=== PATIENT | female | born 1940 | race Caucasian/White ===

== ENCOUNTER → 2023-07-10 10:05 | Outpatient (REF) | payer MEDICARE, OTHER, SELFPAY | LOC: OLABN 10:05 | PROVIDERS: ATTENDING PHYSICIAN Student in an Organized Health Care Education/Training Program | DX: E11.42 Type 2 diabetes mellitus with diabetic polyneuropathy (principal) | CPT/HCPCS: 36415; 83036 ==

== ENCOUNTER → 2023-10-09 11:38 | Outpatient (REF) | payer MEDICARE, OTHER, SELFPAY ==
[2023-10-09 13:21] LABS: ALT (SGPT) 14 U/L (0-35); AST (SGOT) 19 U/L (14-36); Albumin 3.8 g/dl (3.5-5.0); Alkaline Phosphatase 63 U/L (38-126); Blood Urea Nitrogen 7 mg/dl (7-17); Calcium 9.1 mg/dl (8.4-10.2); Carbon Dioxide 26 mmol/L (22-30); Chloride 102 mmol/L (98-107); Glucose 88 mg/dl (70-99); HDL Cholesterol 66 mg/dl; LDL Cholesterol, Calculated 65 mg/dl; Potassium 4.6 mmol/L (3.5-5.1); Sodium 135 mmol/L (135-145); Total Bilirubin 0.3 mg/dl (0.2-1.3); Total Cholesterol 157 mg/dl (50-199); Triglyceride 134 mg/dl (10-149); Very Low Density Lipoprotein 26 mg/dl (0-30); eGFR > 60.00
[2023-10-09 13:29] LABS: % Basophils 0.6 % (0-2); % Eosinophils 1.9 % (0-6); % Immature Granulocytes 0.6 % (0-0.5); % Lymphocytes 22.5 % (20.5-51.1); % Monocytes 11.3 % (1.7-9.3); % Neutrophils 63.1 % (42.2-75.2); Absolute Eosinophils 0.1 10^3/uL (0-0.7); Absolute Lymphocytes 1.5 10^3/uL (1.2-3.4); Absolute Monocytes 0.8 10^3/uL (0.1-0.6); Absolute Neutrophils 4.3 10^3/uL (1.4-6.5); Hematocrit 34.8 % (37.0-47.0); Hemoglobin 11.5 g/dL (12.0-16.0); Mean Corpuscular Hgb 32.7 pg (27.0-31.0); Mean Corpuscular Volume 98.9 fL (81.0-99.0); Mean Platelet Volume 10.3 fL (7.4-10.4); Nucleated Red Blood Cells % 0 %; Platelet Count 387 10^3/uL (130-400); Red Blood Cell Count 3.52 10^6/uL (4.20-5.40); Red Cell Dist. Width 12.7 % (11.5-14.5); White Blood Cell Count 6.8 10^3/uL (4.8-10.8)
[2023-10-09 13:38] LABS: Vitamin D, 25-OH*** < 12.8 ng/mL (30-80)
[2023-10-09 14:10] LABS: Vitamin B12 215 pg/ml (239-931)
== END ==
LOC: OLABN 11:38
PROVIDERS: ATTENDING PHYSICIAN Internal Medicine Geriatric Medicine
DX: E11.42 Type 2 diabetes mellitus with diabetic polyneuropathy (principal); E61.2 Magnesium deficiency; E53.8 Deficiency of other specified B group vitamins; E55.9 Vitamin D deficiency, unspecified
CPT/HCPCS: 80053; 80061; 82306; 82607; 83036; 85025

== ENCOUNTER → 2024-01-08 11:04 | Outpatient (REF) | payer MEDICARE, OTHER, SELFPAY ==
[2024-01-08 12:04] LABS: Vitamin D, 25-OH*** 18.2 ng/mL (30-80)
[2024-01-08 12:37] LABS: Vitamin B12 380 pg/ml (239-931)
== END ==
LOC: OLABN 11:04
PROVIDERS: ATTENDING PHYSICIAN Internal Medicine Geriatric Medicine
DX: E55.9 Vitamin D deficiency, unspecified (principal); E53.8 Deficiency of other specified B group vitamins
CPT/HCPCS: 36415; 82306; 82607

== ENCOUNTER → 2024-01-19 09:45 | Outpatient (REF) | payer MEDICARE, OTHER, SELFPAY ==
[2024-01-19 11:09] LABS: Blood Urea Nitrogen 9 mg/dl (7-17); Carbon Dioxide 31 mmol/L (22-30); Chloride 96 mmol/L (98-107); Glucose 96 mg/dl (70-99); Sodium 137 mmol/L (135-145); eGFR > 60.00
== END ==
LOC: OLABN 09:45
PROVIDERS: ATTENDING PHYSICIAN Internal Medicine Geriatric Medicine
DX: E11.42 Type 2 diabetes mellitus with diabetic polyneuropathy (principal)
CPT/HCPCS: 36415; 80048; 83036

== ENCOUNTER 2024-03-11 16:54 | Emergency (ER) | payer MEDICARE, OTHER, SELFPAY ==
[2024-03-11] VITALS (7 sets, daily range): BP systolic 146–206; BP diastolic 64–118
[2024-03-11 17:21] LABS: % Basophils 0.5 % (0-2); % Eosinophils 0.3 % (0-6); % Immature Granulocytes 0.4 % (0-0.5); % Lymphocytes 11.2 % (20.5-51.1); % Neutrophils 77.6 % (42.2-75.2); Absolute Basophils 0.1 10^3/uL (0-0.2); Absolute Lymphocytes 1.2 10^3/uL (1.2-3.4); Hemoglobin 11.8 g/dL (12.0-16.0); Mean Corp Hgb Conc. 32.8 g/dL (33.0-37.0); Mean Corpuscular Hgb 31.6 pg (27.0-31.0); Mean Corpuscular Volume 96.3 fL (81.0-99.0); Mean Platelet Volume 9.7 fL (7.4-10.4); Nucleated Red Blood Cells % 0 %; Platelet Count 408 10^3/uL (130-400); Red Blood Cell Count 3.74 10^6/uL (4.20-5.40); Red Cell Dist. Width 12.7 % (11.5-14.5); White Blood Cell Count 10.3 10^3/uL (4.8-10.8)
[2024-03-11 17:39] LABS: Blood Urea Nitrogen 9 mg/dl (7-17); Calcium 9.3 mg/dl (8.4-10.2); Carbon Dioxide 27 mmol/L (22-30); Chloride 94 mmol/L (98-107); Estimated Creatinine Clearance 80 ml/min; Glucose 132 mg/dl (70-99); Sodium 132 mmol/L (135-145); eGFR > 60.00
[2024-03-11 17:51] LABS: Lipase 88 U/L (23-300)
--- NOTE | 2024-03-11 18:30 | ED.GENMED ---
History of Present Illness
General
Chief Complaint: Abdominal Pain
Source: patient
Exam Limitations: none
Time Seen by Provider: 03/11/24 18:01
History of Present Illness
History of Present Illness:
This is a 84 year old female that comes in with c/o back and abd pain. States that she started with low back pain a couple of days ago. States that now this has moved around to the left sided of her abd. States that this afternoon it felt like a
knife sticking in her back. States that she is nauseated, has a headache and felt Dizzy when she was coming out of the bathroom. Denies any fever, chills, chest pain, SOB, vomiting, diarrhea, urinary burning.
Past History
Past History
ED Past Medical History: HTN, Hypercholesterolemia, NIDDM, Psychiatric (Anxiety, Depression) and Other (COVID, Neuropathy, Diverticulitis, )
ED Past Surgical History: Appendectomy, Bowel resection (Sigmoid resection), Cholecystectomy, (X 2), Gynecological (Total abd hysterectomy with fibroids, ) and Orthopedic (Right leg fracture with gerard, Left ankle surgery, Back surgery X 2,
Neck surgery)
Social History
Tobacco: Former smoker
Alcohol: None
Personal:
Living: jail ([facility])
Review of Systems
Review of Systems
All Other Systems: ROS reviewed and negative except as documented in HPI and ROS
Constitutional: Reports no symptoms; Denies fever or chills
EENT: Reports no symptoms
Respiratory: Reports no symptoms; Denies cough or trouble breathing
Cardiac: Reports no symptoms; Denies chest pain
ABD/GI: Reports abdominal pain and nausea; Denies vomiting or diarrhea
: Denies dysuria, frequency or urgency
Musculoskeletal: Reports back pain (Left sided)
Skin: Reports no symptoms
Neurological: Reports dizzy and headache
Psychiatric: Reports no symptoms
Phy Exam
General Physical Exam
General Presentation: no apparent distress
General age: appears stated age
General Skin: warm and dry
General Habitus: elderly and obese
General Mental: alert
General Hydration: dry mucous membranes
ENT Exam
ENT Exam: TM's normal, pharynx normal and neck supple
Eye Exam
Eye Exam: EOMI
Cardiovascular Exam
Cardiovascular Exam: regular rate/rhythm, no edema, normal peripheral pulses and other (Murmur)
Pulmonary Exam
Pulmonary Exam: lungs clear, no respiratory distress, no rales, chest non tender, no crackles, no rhonchi, no wheezing and no cough
Gastrointestinal Exam
Gastrointestinal Exam: normal bowel sounds, soft, no organomegaly, no pulsatile mass, non distended, cva tenderness (Left sided) and tender (Left sided tenderness with palpation)
Musculoskeletal Exam
Musculoskeletal Exam: full ROM and no edema
Skin Exam
Skin Exam: normal color, warm/dry, no rash and no petechia
Psychiatric Exam
Psychiatric Exam: normal mood/affect
Course
Orders/Labs/Results
Orders:
Orders
03/11/24 17:11
Basic Metabolic Panel Urgent
Complete Blood Count/With Diff Urgent
Lipase Urgent
03/11/24 18:29
CT Abd/pelvis W Iv Cont Urgent
Comment:
Reason For Exam: Left sided abd pain
Straight cath- Treatment ONCE
0.9% Sodium Chloride 1000 ml [Nss] 1,000 ml IV BOLUS
03/11/24 18:39
Ketorolac [Toradol] 30 mg IV NOW STA
03/11/24 19:46
Urinalysis Reflex To Culture Urgent
Date Specimen was Collected: 03/11/24
Time Specimen was Collected: 19:45
Abnormal Lab Results
03/11/24
17:11
RBC 3.74 L 10^6/uL
(4.20-5.40)
Hgb 11.8 L g/dL
(12.0-16.0)
Hct 36.0 L %
(37.0-47.0)
MCH 31.6 H pg
(27.0-31.0)
MCHC 32.8 L g/dL
(33.0-37.0)
Plt Count 408 H 10^3/uL
(130-400)
Absolute Neuts (auto) 8.0 H 10^3/uL
(1.4-6.5)
Absolute Monos (auto) 1.0 H 10^3/uL
(0.1-0.6)
Neutrophils % 77.6 H %
(42.2-75.2)
Lymphocytes % 11.2 L %
(20.5-51.1)
Monocytes % 10.0 H %
(1.7-9.3)
Sodium 132 L mmol/L
(135-145)
Chloride 94 L mmol/L
(98-107)
Creatinine 0.5 L mg/dL
(0.6-1.0)
Glucose 132 H mg/dl
(70-99)
03/11/24 17:11
03/11/24 17:11
H/H slightly low. Plt slightly elevated. Hyponatremia, Hypochloremia, Hyperglycemia. Urine negative for infection.
Vital Signs
Initial and Last Documented VS:
Initial Vital Signs
Resp BP
20 187/87
03/11/24 17:06 03/11/24 17:06
Last Documented Vital Signs
Temp Pulse Resp BP Pulse Ox
97.4 F 81 19 161/64 95
03/11/24 17:07 03/11/24 21:15 03/11/24 21:15 03/11/24 21:04 03/11/24 21:15
MDM/Problems Addressed
Differential Diagnosis Includes:
Diverticulitis, Renal calculus, Pyelonephrotis,
MDM/Problems Addressed:
This is a 84 year old female that comes in with c/o left lower back pain and abd pain. States that this started a few days ago but then came around to the abd. States that today it felt like a knife in her back.
Will check labs, CT abd, give IV fluids and medicate for pain.
CT cont-inferior endplate margin. This is likely chronic given the well defined and sclerotis margination. Left hip prosthesis is new since prior examination. Prominent heterotopic ossification is noted.
Back into see patient. Explained that there is no bowel obstruction or renal calculus on the CT. NO Diverticulitis. Explained to patient that this may be coming form the back as the nerves wrap around to the abd. Will have patient use Tylenol 1000mg
every 6 hours and follow up with the family doctor. Return with any concerns
Chronic conditions affecting care:
Diverticulitis,
Acute Exacerbation and/or Progression of Chronic Illness:
NA
*Radiology
Radiology exam reviewed: radiology read reviewed (CT-No renal or ureteral calculus and no obstructive uropathy. There has been resection of the descending coln and mobilization of the colon towards midline, whith sigmoid anastomosis. The sigmoid
colon is underdisteneded. There is mild colonic fecal burden. There is a small to moderate amount of gas) and all reviewed NAD by ED Provider (CT cont- gas within the colon, without gross dilation. There is no small bowel dilation to suggest
obstruaction. The appendix is not identified with certainty. No secondary signs of appendicitis. Since prior examination, an obiquely oriented fracture cleft has developed involving the right T12 )
*Pulse Oximetry
Patient hypoxic: no
*EKG
Interpreted by ED Provider?: NA
Rate: EKG- N/A
*Sales Engineer Account Manager Interpretation
Rate: normal
Heart Rate: 74
Rhythm: sinus
*Critical Care Note
Total Time (30-74mins, 75-104mins- exclusive of procedures): Not Applicable
ED Attending Note
-
Portions of this chart may have been created with voice recognition software.� Occasional wrong word or��sound alike� substitutions may have occurred due to the inherent limitations of voice recognition software.
Discharge Plan
Departure
Patient Disposition: Long Term/SNF
Date of Disposition: 03/11/24
Time of Disposition: 22:06
Patient with high blood pressure during this ER visit?: Yes
Condition: Good
Covid-19: Not Applicable
Discharge Problem:
Back pain, Abdominal pain, left lower quadrant
Instructions: Back Pain, Abdominal Pain, BLOOD PRESSURE
Prescriptions:
No Action
metformin 500 MG tablet
500 mg PO BID@0830,1830
omeprazole 20 MG tablet,delayed release (DR/EC)
20 mg PO DAILY
losartan 50 MG tablet
50 mg PO DAILY
gabapentin [Neurontin] 600 MG tablet
600 mg PO TID@,
magnesium oxide [MagOx] 400 MG tablet
400 mg PO DAILY
magnesium hydroxide 30 ML suspension
30 ml PO HSPRN PRN (Reason: lack of bm)
meclizine 25 MG tablet
25 mg PO Q8HPRN PRN (Reason: vertigo)
bisacodyl [OneLAX Bisacodyl] 10 MG suppository
10 mg [place] DAILYPRN PRN (Reason: if mom ineffective)
fluticasone propionate 1 SPRAY spray,suspension
1 spray intranasal DAILY
sertraline 50 MG tablet
75 mg PO DAILY
duloxetine 60 MG capsule,delayed release(DR/EC)
60 mg PO DAILY@1829
diclofenac sodium 100 GRAM/TUBE gel
2 g topical BID@0600,2100
Patient Comments:
APPLY GEL BID TO BILATERAL HANDS AND LEFT HIP
acetaminophen 325 MG tablet
650 mg PO Q4HPRN PRN (Reason: mild pain/ fever>100.4)
sennosides [senna] 1 TABLET tablet
2 tab PO BID 0RF
aspirin 325 MG tablet
325 mg PO DAILY 0RF
Rx Instructions:
for 4 weeks
docusate sodium 100 MG capsule
100 mg PO BID 0RF
amoxicillin-pot clavulanate 1 TABLET tablet
1 tab PO Q12 Qty: 6 0RF
Rx Instructions:
starting tonight
Referrals:
Jesus Alberto Hernandez MD [Family Provider] - Follow up in 2-3 days
Activity Restrictions/Additional Instructions:
As discussed, your urine is negative for infection and your CT shows that there is no bowel obstruction or renal calculus. There is no acute process. This may be due to degenerative changes in the back. You may use Tylenol 1000mg every 6 hours for
pain. Follow up with the family doctor for recheck. You may also use a heating pad to the back or abdomen to help with any discomfort. IF YOU HAVE INCREASED OR CHANGING PAIN, FEVER ,OR YOU HAVE ANY OTHER CONCERNS PLEASE RETURN TO THE EMERGENCY ROOM.
Interventions
Interventions:
*Risk Screen - Suicide Last Done: 03/11/24 17:05
*General Assessment Last Done: 03/11/24 17:05
*Neglect/Abuse Screening Last Done: 03/11/24 17:05
ED- Fall Risk Assessment Last Done: 03/11/24 17:13
*ED COVID-19 Vaccine History Last Done: 03/11/24 17:05
IV-Qflunf-Snzjezraoy Assessment Last Done: 03/11/24 17:10
Discharge Date and Time
Print Language: KYRGYZ
[2024-03-11] MEDS: NSS 1000 IV (18:32)
[2024-03-11] MEDS: TORADOL 30 MG IV (18:54)
[2024-03-11 19:55] LABS: Urine Albumin Negative (Neg - Trace); Urine Bilirubin Negative (Negative); Urine Character Clear (Clear); Urine Color Straw; Urine Glucose Negative (Negative); Urine Ketone Negative (Negative); Urine Leukocyte Negative (Negative); Urine Nitrite Negative (Negative); Urine Occult Blood Negative (Negative); Urine Urobilinogen Negative (Neg - 1+)
[2024-03-11] MEDS: TYLENOL 1000 MG PO (22:24)
[2024-03-12 00:54] VITALS: BP 172/84
== END 2024-03-12 01:22 ==
LOC: EMR 16:54
PROVIDERS: Clinical Nurse Specialist Family Health; EMERGENCY PHYSICIAN Emergency Medicine; FAMILY PHYSICIAN Internal Medicine Geriatric Medicine
DX: R10.32 Left lower quadrant pain (principal); M54.50 Low back pain, unspecified; R51.9 Headache, unspecified; R42 Dizziness and giddiness; E11.40 Type 2 diabetes mellitus with diabetic neuropathy, unspecified; E11.65 Type 2 diabetes mellitus with hyperglycemia; E78.00 Pure hypercholesterolemia, unspecified; I10 Essential (primary) hypertension; F41.9 Anxiety disorder, unspecified; F32.A Depression, unspecified; K57.92 Diverticulitis of intestine, part unspecified, without perforation or abscess without bleeding; Z96.642 Presence of left artificial hip joint; Z87.891 Personal history of nicotine dependence; Z86.16 Personal history of COVID-19; Z79.82 Long term (current) use of aspirin; Z98.0 Intestinal bypass and anastomosis status
CPT/HCPCS: 99285; 96374; 96361 ×4; 51701; 74177; 80048; 81003; 83690; 85025; Q9967

== ENCOUNTER → 2024-04-08 10:15 | Outpatient (REF) | payer MEDICARE, OTHER, SELFPAY | LOC: OLABN 10:15 | PROVIDERS: ATTENDING PHYSICIAN Internal Medicine Geriatric Medicine | DX: E55.9 Vitamin D deficiency, unspecified (principal); E53.8 Deficiency of other specified B group vitamins; E11.42 Type 2 diabetes mellitus with diabetic polyneuropathy | CPT/HCPCS: 36415 ==

== ENCOUNTER → 2024-04-09 08:57 | Outpatient (REF) | payer MEDICARE, OTHER, SELFPAY ==
[2024-04-09 10:38] LABS: Blood Urea Nitrogen 10 mg/dl (7-17); Calcium 8.4 mg/dl (8.4-10.2); Carbon Dioxide 28 mmol/L (22-30); Chloride 99 mmol/L (98-107); Glucose 92 mg/dl (70-99); Potassium 3.8 mmol/L (3.5-5.1); Sodium 136 mmol/L (135-145); eGFR > 60.00
[2024-04-09 10:53] LABS: Vitamin D, 25-OH*** 20.8 ng/mL (30-80)
[2024-04-09 11:26] LABS: Vitamin B12 354 pg/ml (239-931)
[2024-04-09 11:28] LABS: Glycohemoglobin (HgbA1c) 5.7 % (4.0-5.6)
== END ==
LOC: OLABN 08:57
PROVIDERS: ATTENDING PHYSICIAN Internal Medicine Geriatric Medicine
DX: E11.42 Type 2 diabetes mellitus with diabetic polyneuropathy (principal); E55.9 Vitamin D deficiency, unspecified; E53.8 Deficiency of other specified B group vitamins
CPT/HCPCS: 36415; 80048; 82306; 82607; 83036

== ENCOUNTER → 2024-07-08 10:51 | Outpatient (REF) | payer MEDICARE, OTHER, SELFPAY ==
[2024-07-08 11:45] LABS: Blood Urea Nitrogen 11 mg/dl (7-17); Calcium 8.8 mg/dl (8.4-10.2); Carbon Dioxide 27 mmol/L (22-30); Chloride 99 mmol/L (98-107); Glucose 94 mg/dl (70-99); Potassium 3.7 mmol/L (3.5-5.1); Sodium 137 mmol/L (135-145); eGFR > 60.00
[2024-07-08 12:16] LABS: Glycohemoglobin (HgbA1c) 5.5 % (4.0-5.6)
== END ==
LOC: OLABN 10:51
PROVIDERS: ATTENDING PHYSICIAN Internal Medicine Geriatric Medicine
DX: E11.42 Type 2 diabetes mellitus with diabetic polyneuropathy (principal)
CPT/HCPCS: 80048; 83036

== ENCOUNTER → 2024-07-15 10:35 | Outpatient (REF) | payer MEDICARE, OTHER, SELFPAY ==
[2024-07-15 13:22] LABS: Vitamin B12 357 pg/ml (239-931)
== END ==
LOC: OLABN 10:35
PROVIDERS: ATTENDING PHYSICIAN Internal Medicine Geriatric Medicine
DX: E55.9 Vitamin D deficiency, unspecified (principal); E53.8 Deficiency of other specified B group vitamins
CPT/HCPCS: 36415; 82306; 82607

== ENCOUNTER 2024-07-27 16:21 | Observation (INO) | payer MEDICARE, OTHER, SELFPAY ==
[2024-07-27] VITALS (25 sets, daily range): BP systolic 123–187; BP diastolic 65–157; BMI 81.9
[2024-07-27 10:12] LABS: Glucose - Point of Care 90 mg/dl (70-99)
[2024-07-27] MEDS: TYLENOL 1000 MG PO (10:18)
[2024-07-27] MEDS: NORMOSOL-R/PLASMALYTE-A 1000 IV (10:18)
[2024-07-27] MEDS: CELEBREX 200 MG PO (10:18)
[2024-07-27 12:39] LABS: Glucose - Point of Care 94 mg/dl (70-99)
[2024-07-27] MEDS: DILAUDID 0.25 MG IV ×3 (13:25→16:21)
--- NOTE | 2024-07-27 16:08 | HPS.HSE ---
Family Physician
-
Family Physician: NO INTERVIEW UNKNOWN
Chief Complaint
-
hypoxemia
History of Present Illness
84-year-old female past medical history of diabetes, hyperlipidemia, radiculopathy, obesity, diverticulosis, GERD, hypertension, allergic rhinitis, constipation, insomnia, arthritis, underwent carpal and cubital tunnel release today by orthopedics.
He was unable to be weaned off of oxygen due to desaturation to 80%. Was placed on 2 L oxygen.
Patient denies any history of asthma or COPD. He is a former smoker. Denies any cough or shortness of breath. Denies chest pain.
She denies alcohol use.
Medical History
Past Medical History
Past Medical History: Reports Other (diabetes, hyperlipidemia, radiculopathy, obesity, diverticulosis, GERD, hypertension, allergic rhinitis, constipation, insomnia, arthritis,)
Past Surgical History: Reports None
Social History
Tobacco: Non-smoker
Alcohol: None
Drug: None
Family History
Family History: Not pertinent
Allergies / Home Medications
Allergies reflects when Allergies were last updated in [employer].
Home Medications with original date entered in [employer]
Allergy/Medication List:
Allergies
Allergy/AdvReac Type Severity Reaction Status Date / Time
No Known Allergies Allergy Verified 07/27/24 09:57
Home Medications
metformin 500 mg tablet 500 mg PO BID@0830,1830 Diabetes 05/30/20
acetaminophen 325 mg tablet 650 mg PO Q4HPRN PRN mild pain/ fever>100.4 07/23/21
bisacodyl 10 mg rectal suppository (OneLAX Bisacodyl) 10 mg [place] DAILYPRN PRN if mom ineffective 07/23/21
diclofenac sodium 1 % topical gel 2 g topical BID@0600,2100 07/23/21
duloxetine 60 mg capsule,delayed release 30 mg PO HS Mental Health/Anxiety 07/23/21
fluticasone propionate 50 mcg/actuation nasal spray,suspension 1 spray intranasal DAILY Congestion 07/23/21
gabapentin 600 mg tablet (Neurontin) 300 mg PO TID@ Neurological Condition 07/23/21
losartan 50 mg tablet 100 mg PO DAILY Blood pressure 07/23/21
magnesium hydroxide 400 mg/5 mL oral suspension 30 ml PO HSPRN PRN lack of bm 07/23/21
sennosides 8.6 mg tablet (senna) 2 tab PO BID 07/27/21
atorvastatin 10 mg tablet 10 mg PO DAILY 07/20/24
carboxymethylcellulose 0.5 %-glycerin 0.9 % eye drops (Refresh Optive) 1 drp ophthalmic (eye) BID 07/20/24
cholecalciferol (vitamin D3) 50 mcg (2,000 unit) tablet (Vitamin D3) 50 mcg PO DAILY 07/20/24
famotidine 20 mg tablet 20 mg PO DAILY 07/20/24
hydrochlorothiazide 12.5 mg tablet 12.5 mg PO DAILY 07/20/24
hydrocodone 5 mg-acetaminophen 325 mg tablet 1 tab PO BID 07/20/24
melatonin 10 mg tablet 10 mg PO HS PRN insomnia 07/20/24
dnto-gtwtcukiw-bcojbmdseftrw-aldioxa topical powder 1 ea topical DAILY 07/20/24
vitamin B12 500 mcg-folic acid 400 mcg tablet 1 tab PO MOWEFR 07/20/24
Review of Systems
-
History Source: Patient
A 12 point ROS was completed and negative except as noted: Yes
Constitutional: Reports No Symptoms
EENT: Reports No Symptoms
Respiratory: Reports No Symptoms
Cardiac: Reports No Symptoms
Abdomen/GI: Reports No Symptoms
: Reports No Symptoms
Musculoskeletal: Reports No Symptoms
Skin: Reports No Symptoms
Neurological: Reports No Symptoms
Endocrine: Reports No Symptoms
Hematologic/Lymphatic: Reports No Symptoms
Psych: Reports No Symptoms
Physical Exam
Vital Signs
Vital Signs
Temp Pulse Resp BP Pulse Ox
98.1 F 84 18 154/65 95
07/27/24 12:26 07/27/24 13:45 07/27/24 13:45 07/27/24 13:30 07/27/24 13:45
Physical Exam
General: Well Developed, Well Nourished and No Apparent Distress
HEENT: NormoCephalic, Moist mucous membranes and Atraumatic
Respiratory: Clear
Cardiac: S1/S2 and Regular Rhythm; No Murmur or Rub
GI: Soft, Non Tender, Non Distended and Normal Bowel Sounds; No Organomegaly
Rectal: Deferred by Provider
Musculoskeletal: No Clubbing, No Cyanosis and No Edema
Skin: No Rash
Neuro: Nonfocal/grossly intact
Data Reviewed
-
Lab Data: Labs Reviewed by me
Old Records: Reviewed
Impression/Plan
-
IMPRESSION:
PLAN:
# Hypoxemia after receiving anesthesia for carpal/cubital tunnel release
-Likely secondary to anesthesia
-Lungs sound clear
- Check chest x-ray and BMP, CBC
- Tylenol, oxycodone for pain
- Was desaturating to 80% and placed on 2 L, trying to wean off currently 90% which is improvement
Carpal and cubital tunnel release today
-Performed by orthopedics today
Type 2 diabetes
- Continue metformin
Essential hypertension
- Continue losartan
- Continue hydrochlorothiazide
Hyperlipidemia
- Continue statin
Radiculopathy
- Continue gabapentin
Obesity
Diverticulosis
GERD
- Continue famotidine
Allergic rhinitis
Constipation
- Continue bowel regimen
Insomnia
Anxiety/depression
- Continue duloxetine
Full code
DVT prophylaxis-SCDs
Regular diet
[2024-07-27 16:54] LABS: Hematocrit 35.4 % (37.0-47.0); Hemoglobin 11.5 g/dL (12.0-16.0); Mean Corp Hgb Conc. 32.5 g/dL (33.0-37.0); Mean Corpuscular Hgb 30.9 pg (27.0-31.0); Mean Corpuscular Volume 95.2 fL (81.0-99.0); Mean Platelet Volume 9.9 fL (7.4-10.4); Platelet Count 374 10^3/uL (130-400); Red Blood Cell Count 3.72 10^6/uL (4.20-5.40); Red Cell Dist. Width 12.7 % (11.5-14.5); White Blood Cell Count 8.9 10^3/uL (4.8-10.8)
[2024-07-27 17:31] LABS: Blood Urea Nitrogen 9 mg/dl (7-17); Calcium 9.1 mg/dl (8.4-10.2); Carbon Dioxide 29 mmol/L (22-30); Chloride 98 mmol/L (98-107); Estimated Creatinine Clearance > 125 ml/min; Glucose 148 mg/dl (70-99); Potassium 4.2 mmol/L (3.5-5.1); Sodium 137 mmol/L (135-145); eGFR > 60.00
[2024-07-27] MEDS: NORMOSOL-R/PLASMALYTE-A IV (18:21)
[2024-07-27] MEDS: GLUCOPHAGE 500 MG PO (21:17)
[2024-07-27] MEDS: NEURONTIN 300 MG PO (21:17)
[2024-07-27] MEDS: CYMBALTA DELAYED RELEASE 30 MG PO (21:17)
[2024-07-27] MEDS: SENOKOT 17.2 MG PO (21:17)
[2024-07-27] MEDS: REFRESH CELLUVISC GEL 1 DROPS OPHTH (21:18)
[2024-07-27] MEDS: DESENEX/MITRAZOL/ZEASORB 1 APPLIC TOPICAL (21:18)
[2024-07-27] MEDS: NORCO 5/325 1 TABLET PO (21:58)
[2024-07-27] MEDS: MELATONIN 10 MG PO (21:58)
[2024-07-28] MEDS: TORADOL 10 MG IV (02:48)
[2024-07-28 03:47] VITALS: BP 135/73
[2024-07-28] MEDS: NEURONTIN 300 MG PO (05:52)
[2024-07-28 07:02] VITALS: BP 147/67
--- NOTE | 2024-07-28 08:12 | W.PN.UPDATE ---
Update Note
Progress Note Update
I stopped by and saw patient this morning. She is resting comfortably in bed. She does endorse aching pain about the elbow, but otherwise reports she is feeling well. She was admitted to hospitalist service for hypoxia after her right cubital tunnel
release yesterday. We appreciate care of all teams in management of this patient. Her post-operative dressing is CDI. Good color of fingers. Able to wiggle fingers. Sensation intact to light touch. Capillary refill <2 seconds. We will see patient
as an outpatient between 10-14 days post-op. Please reach out with any additional orthopedic question or concerns.
[2024-07-28] MEDS: NORCO 5/325 1 TABLET PO (10:02)
[2024-07-28] MEDS: ORETIC 12.5 MG PO (10:02)
[2024-07-28] MEDS: COZAAR 100 MG PO (10:02)
[2024-07-28] MEDS: DESENEX/MITRAZOL/ZEASORB 1 APPLIC TOPICAL (10:03)
[2024-07-28] MEDS: VITAMIN D3 (cholecalciferol) 50 MCG PO (10:04)
[2024-07-28] MEDS: PEPCID 20 MG PO (10:04)
[2024-07-28] MEDS: LIPITOR 10 MG PO (10:10)
[2024-07-28] MEDS: SENOKOT 17.2 MG PO (10:10)
[2024-07-28] MEDS: REFRESH CELLUVISC GEL 1 DROPS OPHTH (10:10)
[2024-07-28] MEDS: VITAMIN B-12 500 MCG PO (10:12)
[2024-07-28] MEDS: FOLVITE 0.4 MG PO (10:12)
[2024-07-28] MEDS: GLUCOPHAGE 500 MG PO (10:40)
[2024-07-28] MEDS: NORMOSOL-R/PLASMALYTE-A 1000 IV (10:50)
[2024-07-28 11:05] VITALS: BP 133/72
--- NOTE | 2024-07-28 12:08 | CM ---
Addendum entered by Carlos Flower 07/28/24 12:36:
Per hospitalist, patient is stable for d/c today
Updated patient's daughter daughter and son. Son will transport patient back to SNF
IMM verbally reviewed, copy given to patient, copy on chart
[facility]
Report: [phone]

Original Note:
Patient seen bedside, initial assessment completed. Admitted for hypoxemia.
Patient is a LTC resident at [facility]. Patient shared she has been living at [facility] for 4 years now. Patient uses w/c, has rollator, RW, and cane. Independent w/ ADLs, patient gets food brought to her room. Currently working with PT at
facility 3/4 days/week. Patient does not use O2 at SNF.
PCP: Jesus Alberto Hernandez
Pharmacy: [facility]
Patient currently admitted as obs. ZENG form verbally reviewed, copy given to patient, copy on chart
Plan: Return to [facility] LT
--- NOTE | 2024-07-28 12:34 | W.PN.HOSP.TC ---
Today's Communication/Plan
-
d/c
Assessment / Plan
Assessment / Plan
pt is an 84 year old female
acute Hypoxemic resp insufficiency after receiving anesthesia for carpal/cubital tunnel release--Likely secondary to anesthesia- Tylenol, oxycodone for pain- Was desaturating to 80% and placed on 2 L--now off
Carpal and cubital tunnel release today-Performed by orthopedics today
Type 2 diabetes- Continue metformin
Essential hypertension- Continue losartan- Continue hydrochlorothiazide
Hyperlipidemia- Continue statin
Radiculopathy- Continue gabapentin
Obesity
Diverticulosis
GERD- Continue famotidine
Allergic rhinitis
Constipation- Continue bowel regimen
Insomnia
Anxiety/depression- Continue duloxetine
code status--Full code
DVT prophylaxis-SCDs
Anticipated Discharge: Today
Subjective/Interval History
-
Date of Service: July 28, 2024
ok for d/c
no c/o
Objective Data
-
Vital Signs:
max temp for 24 hours
07/28/24
07:02
Temp 98.5 F
Vital Signs
Temp Pulse Resp BP Pulse Ox
98.4 F 76 18 133/72 100
07/28/24 11:05 07/28/24 11:05 07/28/24 11:05 07/28/24 11:05 07/28/24 11:05
I&O
07/27/24 07/28/24 07/29/24
06:59 06:59 06:59
Intake Total 250 / 250
Balance 250 / 250
Review of Systems
-
All other systems: Reviewed and negative
Physical Exam
-
General: Well Developed, Well Nourished, No Apparent Distress and Obese
HEENT: Normocephalic and Atraumatic
Respiratory: Clear to Auscultation; Negative Wheezes or Rhonchi
Cardiac: Regular Rhythm and S1/S2; Negative Murmur
GI: Soft, Nontender, Nondistended and Normal Bowel Sounds
Musculoskeletal: No Clubbing, No Cyanosis, No Edema and Other (right arm with post op splint)
Neuro: Awake and Alert
Psych: Calm
--- NOTE | 2024-07-28 13:42 | W.DCSUMMARY ---
Discharge Summary
Discharge Data
Date of Admission: 07/27/24
Date of Discharge: 07/28/24
-
Pending Results: No
Hospital Course
Primary care physician : Not Listed
Principal Discharge diagnosis : Acute hypoxemic respiratory insufficiency after receiving anesthesia for carpal/cubital tunnel release
Chronic Discharge diagnosis : Type 2 diabetes mellitus, essential hypertension, hyperlipidemia, radiculopathy, obesity, diverticulosis, gastroesophageal reflux disease, allergic rhinitis, constipation, insomnia, anxiety/depression
Hospital Course : Patient was an 84-year-old female who underwent carpal and cubital tunnel release on the day of admission by orthopedics. She was unable to be weaned off oxygen due to desaturations of her pulse ox to 80%. She was placed on 2 L
of oxygen. Patient was admitted.
Problem #1: Acute hypoxemic respiratory insufficiency after receiving anesthesia for carpal/cubital tunnel release. Patient was brought into the hospital as post surgical recovery. Oxygen was able to be weaned off once anesthesia wore off.
Patient is stable for discharge back to her nursing facility at this time. Patient should follow-up with orthopedics in regards to her recent orthopedic surgery.
Problem #2: All other medical issues. These include Type 2 diabetes mellitus, essential hypertension, hyperlipidemia, radiculopathy, obesity, diverticulosis, gastroesophageal reflux disease, allergic rhinitis, constipation, insomnia,
anxiety/depression. These medical issues were stable during her hospitalization. Medications were continued as able.
Patient is stable for discharge back to her nursing facility at this time. If there are any questions regarding this dictation or her hospital stay, please not hesitate to call. Our office number is [phone].
Discharge Plan
-
Patient Disposition: Fpc/SNF
Discharge Diagnosis/Procedures: Acute hypoxemic respiratory insufficiency status post anesthesia for carpal/cubital tunnel release, type 2 diabetes, essential hypertension, hyperlipidemia, radiculopathy, obesity, diverticulosis, gastroesophageal
reflux disease, allergic rhinitis, constipation, insomnia, anxiety/depression
Diet: Diabetic, Carb Controlled
Activity: Other activity
Additional Activity: right arm activity as per ortho
Driving Restrictions: No driving
Bathing Restrictions: None
Referrals:
Jakub Mccray MD [Active] - (10 to 14 days postop)
UNKNOWN,NO INTERVIEW [Family Provider] - in less than 1 week
Prescriptions:
New
hydrocodone-acetaminophen 5-325 mg Tablet
1 tab PO BID Qty: 10 0RF
Continued
metformin 500 MG tablet
500 mg PO BID@0830,0
losartan 50 MG tablet
100 mg PO DAILY
gabapentin [Neurontin] 600 MG tablet
300 mg PO TID@,,
magnesium hydroxide 30 ML suspension
30 ml PO HSPRN PRN (Reason: lack of bm)
bisacodyl [OneLAX Bisacodyl] 10 MG suppository
10 mg [place] DAILYPRN PRN (Reason: if mom ineffective)
fluticasone propionate 1 SPRAY spray,suspension
1 spray intranasal DAILY
duloxetine 60 MG capsule,delayed release(DR/EC)
30 mg PO HS
diclofenac sodium 100 GRAM/TUBE gel
2 g topical BID@0600,2100
Patient Comments:
APPLY GEL BID TO BILATERAL HANDS AND LEFT HIP
acetaminophen 325 MG tablet
650 mg PO Q4HPRN PRN (Reason: mild pain/ fever>100.4)
sennosides [senna] 1 TABLET tablet
2 tab PO BID 0RF
atorvastatin 10 mg tablet
10 mg PO DAILY
famotidine 20 mg tablet
20 mg PO DAILY
hydrochlorothiazide 12.5 mg tablet
12.5 mg PO DAILY
yfcx-nskquyjjh-ktibkxxs-aldiox Powder
1 ea TOPICAL DAILY
Patient Comments:
under breasts for fungal rash
Refresh Optive 0.5-0.9 % Drops
1 drp OPHTHALMIC (EYE) BID
cholecalciferol (vitamin D3) [Vitamin D3] 50 mcg (2,000 unit) Tablet
50 mcg PO DAILY
vitamin H43-kzfil acid 500-400 mcg Tablet
1 tab PO MOWEFR
melatonin 10 mg Tablet
10 mg PO HS PRN (Reason: insomnia)
Discontinued
hydrocodone-acetaminophen 5-325 mg tablet
1 tab PO BID
Discharge Orders:
Discharge Patient (As Directed); Ordered 07/28/24
Ordered By: Nyla Sarabia
Discharge Date and Time
Discharge Date/Time: 07/28/24 13:43
Print Language: GEORGIAN
== END 2024-07-28 13:43 ==
LOC: 4 EAST ACU 16:21
PROVIDERS: ADMITTING PHYSICIAN Hospitalist; ATTENDING PHYSICIAN Internal Medicine
DX: G56.21 Lesion of ulnar nerve, right upper limb (principal); G56.01 Carpal tunnel syndrome, right upper limb; R09.02 Hypoxemia; R06.89 Other abnormalities of breathing; E11.9 Type 2 diabetes mellitus without complications; Z79.84 Long term (current) use of oral hypoglycemic drugs; I10 Essential (primary) hypertension; E78.5 Hyperlipidemia, unspecified; E66.9 Obesity, unspecified; K21.9 Gastro-esophageal reflux disease without esophagitis; J30.9 Allergic rhinitis, unspecified; K59.00 Constipation, unspecified; G47.00 Insomnia, unspecified; F41.9 Anxiety disorder, unspecified; F32.A Depression, unspecified; K57.90 Diverticulosis of intestine, part unspecified, without perforation or abscess without bleeding
CPT/HCPCS: 64718; 64721; 71045; 80048; 82962; 85027; G0378

== ENCOUNTER 2024-08-13 14:04 | Day surgery (SDC) | payer MEDICARE, OTHER, SELFPAY ==
[2024-08-13] VITALS (9 sets, daily range): BP systolic 116–164; BP diastolic 74–100
[2024-08-13 14:25] LABS: Glucose - Point of Care 106 mg/dl (70-99)
[2024-08-13] MEDS: NORMOSOL-R/PLASMALYTE-A 1000 IV (14:36)
[2024-08-13 16:13] LABS: Glucose - Point of Care 96 mg/dl (70-99)
[2024-08-13] MEDS: DILAUDID 0.5 MG IV ×2 (16:19→16:40)
== END 2024-08-13 17:59 | disposition home or self-care (01) ==
LOC: SDS 14:04
PROVIDERS: ATTENDING PHYSICIAN Orthopaedic Surgery
DX: T81.31XA Disruption of external operation (surgical) wound, not elsewhere classified, initial encounter (principal); Y83.8 Other surgical procedures as the cause of abnormal reaction of the patient, or of later complication, without mention of misadventure at the time of the procedure
CPT/HCPCS: 13160; 82962

== ENCOUNTER → 2024-10-07 10:24 | Outpatient (REF) | payer MEDICARE, OTHER, SELFPAY ==
[2024-10-07 12:01] LABS: ALT (SGPT) 10 U/L (0-35); AST (SGOT) 17 U/L (14-36); Albumin 3.7 g/dl (3.5-5.0); Alkaline Phosphatase 55 U/L (38-126); Blood Urea Nitrogen 12 mg/dl (7-17); Calcium 9.3 mg/dl (8.4-10.2); Carbon Dioxide 30 mmol/L (22-30); Chloride 103 mmol/L (98-107); Glucose 102 mg/dl (70-99); HDL Cholesterol 53 mg/dl; LDL Cholesterol, Calculated 53 mg/dl; Potassium 3.7 mmol/L (3.5-5.1); Sodium 136 mmol/L (135-145); Total Protein 5.8 g/dl (6.3-8.2); Very Low Density Lipoprotein 21 mg/dl (0-30); eGFR > 60.00
[2024-10-07 14:08] LABS: Glycohemoglobin (HgbA1c) 5.9 % (4.0-5.6)
== END ==
LOC: OLABN 10:24
PROVIDERS: ATTENDING PHYSICIAN Internal Medicine Geriatric Medicine
DX: E78.5 Hyperlipidemia, unspecified (principal); E11.9 Type 2 diabetes mellitus without complications
CPT/HCPCS: 36415; 80053; 80061; 82248; 83036

== ENCOUNTER → 2025-01-06 10:53 | Outpatient (REF) | payer MEDICARE, OTHER, SELFPAY ==
[2025-01-06 11:31] LABS: Blood Urea Nitrogen 14 mg/dl (7-17); Calcium 8.6 mg/dl (8.4-10.2); Carbon Dioxide 28 mmol/L (22-30); Chloride 97 mmol/L (98-107); Glucose 94 mg/dl (70-99); Potassium 4.0 mmol/L (3.5-5.1); Sodium 131 mmol/L (135-145); eGFR > 60.00
[2025-01-06 11:48] LABS: Vitamin D, 25-OH*** 25.0 ng/mL (30-80)
[2025-01-06 11:56] LABS: Glycohemoglobin (HgbA1c) 6.0 % (4.0-5.6)
== END ==
LOC: OLABN 10:53
PROVIDERS: ATTENDING PHYSICIAN Internal Medicine Geriatric Medicine
DX: E11.42 Type 2 diabetes mellitus with diabetic polyneuropathy (principal); E55.9 Vitamin D deficiency, unspecified
CPT/HCPCS: 36415; 80048; 82306; 83036